=== PATIENT | female | born 1945 | race Caucasian/White ===

== ENCOUNTER → 2018-03-01 | Outpatient (CLI) | payer OTHER ==
[~2018-03-01] MED LIST: ALBU90OI61 INH; AMIT10; AMIT10 PO; AMLO5; CARV6.25 PO; CYCL10; CYCL10 PO; Cyclobenzaprine5 MG PO; Dicyclomine HCl20 MG PO; ESOM20; ESOM20 PO; FURO40 PO; Felodipine ER5 MG PO; HYDACE5325 PO; LEVO750 PO; LIDO5TO TOP; LORA.5 PO; LOSA25 PO; METPRE4DP PO; Norco 5-325 Ta1 EACH PO; Omeprazole20 M1 PO; Prilosec Otc20 MG PO; ROPI2 PO; ROXICODONE5 MG PO; SIMV10; SIMV10 PO; SPIR25 PO; SUCR1 PO; Simvastatin20 MG PO; Valium5 MG PO
[2018-03-01 18:23] LABS: Bun/Creatinine Ratio 18.4 (12.0-20.0); Calcium, Blood 9.3 mg/dL (8.5-10.1); Creatinine, Blood 1.03 mg/dL (0.40-1.00); Potassium, Blood 4.8 mmol/L (3.5-5.5)
== END ==
LOC: LAB 17:21 → LAB SHORT 17:21
PROVIDERS: Nurse Practitioner Adult Health
DX: I42.0 Dilated cardiomyopathy (principal)
CPT/HCPCS: 80048

== ENCOUNTER → 2018-10-10 | Outpatient (CLI) | payer OTHER ==
[~2018-10-10] MED LIST changes: +ENTRESTO 97 MG1 EACH PO
[2018-10-10 19:03] LABS: Anion Gap 3 mmol/L (6-16); Blood Urea Nitrogen 16 mg/dL (8-24); Bun/Creatinine Ratio 16.6 (12.0-20.0); CO2, Blood 28 mmol/L (21-32); Calcium, Blood 9.2 mg/dL (8.5-10.1); Chloride, Blood 110 mmol/L (98-108); Creatinine, Blood 0.97 mg/dL (0.40-1.00); Glomerular Filtration Rate >60 (60-); Glucose, Blood 119 mg/dL (70-99); Phosphorus, Blood 3.9 mg/dL (2.5-4.9); Potassium, Blood 4.2 mmol/L (3.5-5.5); Sodium, Blood 141 mmol/L (136-145)
== END | disposition home or self-care (01) ==
LOC: LAB SHORT 18:03 → LAB 18:03
PROVIDERS: Internal Medicine
DX: I10 Essential (primary) hypertension (principal)
CPT/HCPCS: 80069

== ENCOUNTER 2018-11-15 12:29 | Emergency (ER) | payer OTHER ==
[~2018-11-15] VITALS: Ht 157.5 cm; Wt 72.6 kg
[~2018-11-15 12:29] MED LIST changes: -ENTRESTO 97 MG1 EACH PO
[2018-11-15] MEDS ORDERED: ENTRESTO 97 MG1 EACH PO (15:10)
[2018-11-15 15:11] LABS: Source, Urine Clean Catch
[2018-11-15] MEDS ORDERED: Norco 5-325 Ta1 EACH PO (15:19)
[2018-11-15 15:21] LABS: Bilirubin, Urine Neg (Neg); Blood, Urine 2+ (Neg); Glucose Qualitative, Urine Neg (Neg); Ketones, Urine Neg (Neg); Leukocyte Esterase, Urine 3+ (Neg); Nitrite, Urine Pos (Neg); Protein, Urine Neg (Neg); Specific Gravity, Urine 1.005 (1.003-1.022); Urobilinogen, Urine NORM (Normal); pH, Urine 6.5 (5.0-8.0)
[2018-11-15 15:33] LABS: Appearance, Urine Clear (Clear); Color, Urine Yellow (P-Yellow)
[2018-11-15 15:35] LABS: Bacteria Many /hpf; Squamous Epithelial Cells Few /hpf (Few); White Blood Cells, Urine 25-50 /hpf (0-5)
== END 2018-11-15 15:48 | disposition home or self-care (01) ==
LOC: ER 12:29
PROVIDERS: Physician Assistant
DX: S39.011A Strain of muscle, fascia and tendon of abdomen, initial encounter (principal); I10 Essential (primary) hypertension; Z88.0 Allergy status to penicillin; Z88.1 Allergy status to other antibiotic agents; Z88.8 Allergy status to other drugs, medicaments and biological substances; Z79.51 Long term (current) use of inhaled steroids; Z79.899 Other long term (current) drug therapy; X58.XXXA Exposure to other specified factors, initial encounter
CPT/HCPCS: 81001; 87077; 87086; 87186; 93971; 99284-25; A9270-GY

== ENCOUNTER 2019-01-21 10:16 | Emergency (ER) | payer OTHER ==
[~2019-01-21] VITALS: Ht 157.5 cm; Wt 70.8 kg
[~2019-01-21 10:16] MED LIST changes: +ENTRESTO 97 MG1 EACH PO
[2019-01-21 10:52] LABS: BASOPHILS ABSOLUTE AUTO 0.09 K/mm3 (0.00-0.23); BASOPHILS PERCENT AUTO 0 % (0-2); EOSINOPHILS ABSOLUTE AUTO 0.02 K/mm3 (0.00-0.68); EOSINOPHILS PERCENT AUTO 0 % (0-6); Hematocrit 44.1 % (33.0-51.0); Hemoglobin 14.6 g/dL (11.5-16.0); IMMATURE GRAN ABSOLUTE AUTO 0.25 K/mm3 (0.00-0.10); IMMATURE GRAN PERCENT AUTO 1 % (0-1); LYMPHOCYTES ABSOLUTE AUTO 2.85 K/mm3 (0.84-5.20); LYMPHOCYTES PERCENT AUTO 12 % (21-46); MONOCYTES ABSOLUTE AUTO 2.16 K/mm3 (0.16-1.47); MONOCYTES PERCENT AUTO 9 % (4-13); Mean Corpuscular HGB 31.2 pg (26.0-34.0); Mean Corpuscular HGB Conc 33.1 g/dL (31.5-36.5); Mean Corpuscular Volume 94 fL (80-100); Mean Platelet Volume 9.9 fL (9.1-12.4); NEUTROPHILS ABSOLUTE AUTO 17.97 K/mm3 (1.96-9.15); NEUTROPHILS PERCENT AUTO 77 % (41-73); Platelet Count 294 K/mm3 (150-400); RDW Standard Deviation 48.7 fL (35.1-46.3); Red Blood Cell Count 4.68 M/mm3 (3.80-5.20); White Blood Cell Count 23.34 K/mm3 (4.00-11.30)
[2019-01-21 11:11] LABS: Albumin, Blood 3.4 g/dL (3.4-5.0); Albumin/Globulin Ratio 0.8 (0.8-1.8); Bilirubin, Total 2.3 mg/dL (0.1-1.0); Bun/Creatinine Ratio 24.3 (12.0-20.0); Calcium, Blood 9.6 mg/dL (8.5-10.1); Creatinine, Blood 1.36 mg/dL (0.40-1.00); Globulin, Blood 4.5 g/dL (2.2-4.0); Magnesium, Blood 1.9 mg/dL (1.6-2.4); Potassium, Blood 4.3 mmol/L (3.5-5.5); Total Protein, Blood 7.9 g/dL (6.4-8.2)
[2019-01-21 12:53] LABS: Source, Urine Clean Catch
[2019-01-21 13:01] LABS: Blood, Urine 4+ (Neg); Glucose Qualitative, Urine Neg (Neg); Ketones, Urine 1+ (Neg); Leukocyte Esterase, Urine 3+ (Neg); Nitrite, Urine Neg (Neg); Protein, Urine 3+ (Neg); Urobilinogen, Urine 1+ (Normal)
[2019-01-21 13:16] LABS: Appearance, Urine Cloudy (Clear); Bilirubin, Urine 1+ (Neg); Color, Urine Yellow (P-Yellow)
[2019-01-21 13:18] LABS: Source, Urine Clean Catch
[2019-01-21 14:22] LABS: Bacteria Many /hpf; Squamous Epithelial Cells Many /hpf (Few)
[2019-01-21 14:23] LABS: Amorphous Light (0-Heavy); White Blood Cells, Urine 25-50 /hpf (0-5)
[2019-01-21] MEDS ORDERED: Cipro500 MG PO (17:04)
== END 2019-01-21 17:22 | disposition home or self-care (01) ==
LOC: ER 10:16
PROVIDERS: Physician Assistant
DX: M54.31 Sciatica, right side (principal); N39.0 Urinary tract infection, site not specified; I10 Essential (primary) hypertension; Z88.8 Allergy status to other drugs, medicaments and biological substances; Z88.0 Allergy status to penicillin; Z88.6 Allergy status to analgesic agent; Z79.899 Other long term (current) drug therapy; Z79.51 Long term (current) use of inhaled steroids
CPT/HCPCS: 36415; 71046; 72148; 80053; 81015; 83690; 83735; 85025; 87077; 87086; 87186; 96365; 96366; 96367; 96375; 99284-25; J2405; J3370

== ENCOUNTER 2019-03-02 11:11 | Emergency (ER) | payer OTHER ==
[~2019-03-02] VITALS: Ht 162.6 cm; Wt 63.5 kg
[~2019-03-02 11:11] MED LIST changes: +Cipro500 MG PO
[2019-03-02 12:05] LABS: BASOPHILS ABSOLUTE AUTO 0.07 K/mm3 (0.00-0.23); BASOPHILS PERCENT AUTO 0 % (0-2); EOSINOPHILS ABSOLUTE AUTO 0.17 K/mm3 (0.00-0.68); EOSINOPHILS PERCENT AUTO 1 % (0-6); Hematocrit 32.8 % (33.0-51.0); Hemoglobin 10.6 g/dL (11.5-16.0); IMMATURE GRAN ABSOLUTE AUTO 0.47 K/mm3 (0.00-0.10); IMMATURE GRAN PERCENT AUTO 2 % (0-1); LYMPHOCYTES ABSOLUTE AUTO 1.05 K/mm3 (0.84-5.20); LYMPHOCYTES PERCENT AUTO 4 % (21-46); MONOCYTES ABSOLUTE AUTO 0.99 K/mm3 (0.16-1.47); MONOCYTES PERCENT AUTO 4 % (4-13); Mean Corpuscular HGB 28.6 pg (26.0-34.0); Mean Corpuscular HGB Conc 32.3 g/dL (31.5-36.5); Mean Corpuscular Volume 89 fL (80-100); Mean Platelet Volume 9.4 fL (9.1-12.4); NEUTROPHILS ABSOLUTE AUTO 21.97 K/mm3 (1.96-9.15); NEUTROPHILS PERCENT AUTO 89 % (41-73); Platelet Count 320 K/mm3 (150-400); RDW Standard Deviation 45.5 fL (35.1-46.3); White Blood Cell Count 24.72 K/mm3 (4.00-11.30)
[2019-03-02 12:18] LABS: International Normalized Ratio 1.13
[2019-03-02 12:24] LABS: Albumin, Blood 2.7 g/dL (3.4-5.0); Albumin/Globulin Ratio 0.6 (0.8-1.8); Bilirubin, Total 1.2 mg/dL (0.1-1.0); Bun/Creatinine Ratio 13.2 (12.0-20.0); Calcium, Blood 9.3 mg/dL (8.5-10.1); Creatinine, Blood 0.99 mg/dL (0.40-1.00); Globulin, Blood 4.7 g/dL (2.2-4.0); Potassium, Blood 3.9 mmol/L (3.5-5.5); Total Protein, Blood 7.4 g/dL (6.4-8.2)
[2019-03-02 12:30] LABS: Source, Urine Clean Catch
[2019-03-02 12:42] LABS: Appearance, Urine Clear (Clear); Bilirubin, Urine Neg (Neg); Blood, Urine Neg (Neg); Color, Urine Yellow (P-Yellow); Glucose Qualitative, Urine Neg (Neg); Ketones, Urine Neg (Neg); Leukocyte Esterase, Urine 1+ (Neg); Nitrite, Urine Neg (Neg); Protein, Urine 2+ (Neg); Urobilinogen, Urine 2+ (Normal)
[2019-03-02 13:06] LABS: Bacteria Rare /hpf; Red Blood Cells, Urine 0-2 /hpf (0-2); Squamous Epithelial Cells Mod /hpf (Few)
== END 2019-03-02 13:06 | disposition short-term general hospital (02) ==
LOC: ER 11:11
PROVIDERS: Emergency Medicine
DX: I63.9 Cerebral infarction, unspecified (principal); Z88.0 Allergy status to penicillin; Z88.8 Allergy status to other drugs, medicaments and biological substances; Z88.6 Allergy status to analgesic agent; Z79.899 Other long term (current) drug therapy; I10 Essential (primary) hypertension
CPT/HCPCS: 37195; 70450; 71045; 80053; 81001; 82947; 85025; 85610; 85730; 87086; 93005; 93010; 96374-59; 99285-25; J2310; J2997; P9612; Q3014

== ENCOUNTER 2019-05-03 22:43 | Inpatient (IN) | payer OTHER ==
[~2019-05-03] VITALS: Ht 170.2 cm; Wt 62.3 kg
[2019-05-03 23:16] LABS: Source, Urine Catheter
[2019-05-03 23:19] LABS: BASOPHILS ABSOLUTE AUTO 0.07 K/mm3 (0.00-0.23); BASOPHILS PERCENT AUTO 0 % (0-2); EOSINOPHILS ABSOLUTE AUTO 0.01 K/mm3 (0.00-0.68); EOSINOPHILS PERCENT AUTO 0 % (0-6); IMMATURE GRAN PERCENT AUTO 1 % (0-1); LYMPHOCYTES ABSOLUTE AUTO 1.04 K/mm3 (0.84-5.20); LYMPHOCYTES PERCENT AUTO 6 % (21-46); MONOCYTES ABSOLUTE AUTO 1.11 K/mm3 (0.16-1.47); MONOCYTES PERCENT AUTO 6 % (4-13); Mean Corpuscular HGB 30.1 pg (26.0-34.0); Mean Corpuscular HGB Conc 33.3 g/dL (31.5-36.5); Mean Corpuscular Volume 90 fL (80-100); Mean Platelet Volume 9.3 fL (9.1-12.4); NEUTROPHILS ABSOLUTE AUTO 15.52 K/mm3 (1.96-9.15); NEUTROPHILS PERCENT AUTO 86 % (41-73); Platelet Count 279 K/mm3 (150-400); RDW Coefficient Variation 16.4 % (11.7-14.2); RDW Standard Deviation 54.9 fL (35.1-46.3); Red Blood Cell Count 4.32 M/mm3 (3.80-5.20); White Blood Cell Count 17.95 K/mm3 (4.00-11.30)
[2019-05-03 23:19] LABS: Bilirubin, Urine Neg (Neg); Blood, Urine 1+ (Neg); Glucose Qualitative, Urine Neg (Neg); Ketones, Urine Neg (Neg); Leukocyte Esterase, Urine Neg (Neg); Nitrite, Urine Neg (Neg); Protein, Urine 2+ (Neg); Specific Gravity, Urine 1.015 (1.003-1.022); Urobilinogen, Urine 1+ (Normal)
[2019-05-03 23:22] LABS: Appearance, Urine Clear (Clear); Color, Urine Yellow (P-Yellow)
[2019-05-03 23:26] LABS: White Blood Cells, Urine 0-2 /hpf (0-5)
[2019-05-03 23:27] LABS: Bacteria Few /hpf; Squamous Epithelial Cells Few /hpf (Few)
[2019-05-03 23:32] LABS: Alanine Aminotransfer (ALT/SGP 24 U/L (12-78); Albumin, Blood 3.5 g/dL (3.4-5.0); Albumin/Globulin Ratio 0.8 (0.8-1.8); Alk Phos 126 U/L (50-136); Anion Gap 8 mmol/L (6-16); Aspartate Aminotrans (AST/SGOT 18 U/L (12-37); Bilirubin, Total 1.9 mg/dL (0.1-1.0); Blood Urea Nitrogen 19 mg/dL (8-24); Bun/Creatinine Ratio 24.8 (12.0-20.0); CO2, Blood 25 mmol/L (21-32); Calcium, Blood 9.5 mg/dL (8.5-10.1); Chloride, Blood 103 mmol/L (98-108); Creatinine, Blood 0.77 mg/dL (0.40-1.00); Globulin, Blood 4.4 g/dL (2.2-4.0); Glomerular Filtration Rate >60 (60-); Glucose, Blood 148 mg/dL (70-99); Sodium, Blood 136 mmol/L (136-145); Total Protein, Blood 7.9 g/dL (6.4-8.2)
[2019-05-03] MEDS ORDERED: OMEP20ER PT (23:35)
[2019-05-03] MEDS ORDERED: ATOR20 PT (23:35)
[2019-05-03] MEDS ORDERED: LOSA25 PT (23:37)
[2019-05-03] MEDS ORDERED: CARV25 PT (23:37)
[2019-05-03] MEDS ORDERED: OXYC5 PT (23:39)
[2019-05-03] MEDS ORDERED: Feverall650 MG PR (23:39)
[2019-05-03] MEDS ORDERED: WARF5 PT (23:42)
[2019-05-04 00:18] LABS: PCO2 Arterial 34.3 mmHg (35-45); PO2 Arterial 80.3 mmHg (80-100); pH Blood Arterial 7.46 (7.35-7.45)
[2019-05-04 00:26] LABS: Magnesium, Blood 1.8 mg/dL (1.6-2.4); Troponin I <0.015 ng/mL (0.000-0.040)
[2019-05-04 00:48] LABS: Influenza A Negative (NEGATIVE); Influenza B Negative (NEGATIVE)
[2019-05-04 02:51] LABS: International Normalized Ratio 1.16; Prothrombin Time Results 12.3 Sec (9.7-11.5)
--- NOTE | 2019-05-04 03:50 | NUR ---
DR. PATEL CALLED TO CLARIFY ISOLATION ORDERS PT ARRIVED WITH STAFF WEARING DROPLET/CONTACT PRECAUTIONS. DR. PATEL WANTS TO KEEP PT DROPLET IN CASE RESPIRATORY STATUS DETERIORATES AND PT ENDS UP NEEDING TESTED FOR COVID 19. HE BELIEVES PT HAS PNEUMONIA SECONDARY TO ASPIRATION; HOWEVER, WANTS TO PROTECT STAFF DUE TO ELEVATED TEMPERATURE OF 103. THEREFORE, NO NEED TO TEST FOR COVID 19 AT THIS TIME. WANTS TO SEE IF TREATMENT FOR PNEUMONIA IMPROVES PT'S RESPIRATORY STATUS.
--- NOTE | 2019-05-04 03:54 | NUR ---
PT ARRIVED FROM ED AT 0309, PT PULLED FROM STRETCHER, IS NON VERBAL, IV IS INFILTRATED IN LEFT AC. PULLED AND BANDAGED. THAI AT BEDSIDE, GIVING PT HX AND MEDICATIONS.
[2019-05-04 04:00] LABS: BASOPHILS ABSOLUTE AUTO 0.05 K/mm3 (0.00-0.23); BASOPHILS PERCENT AUTO 0 % (0-2); EOSINOPHILS ABSOLUTE AUTO 0.01 K/mm3 (0.00-0.68); EOSINOPHILS PERCENT AUTO 0 % (0-6); Hematocrit 35.7 % (33.0-51.0); Hemoglobin 11.7 g/dL (11.5-16.0); IMMATURE GRAN ABSOLUTE AUTO 0.13 K/mm3 (0.00-0.10); IMMATURE GRAN PERCENT AUTO 1 % (0-1); LYMPHOCYTES ABSOLUTE AUTO 0.98 K/mm3 (0.84-5.20); LYMPHOCYTES PERCENT AUTO 7 % (21-46); MONOCYTES ABSOLUTE AUTO 1.12 K/mm3 (0.16-1.47); MONOCYTES PERCENT AUTO 7 % (4-13); Mean Corpuscular HGB 29.9 pg (26.0-34.0); Mean Corpuscular HGB Conc 32.8 g/dL (31.5-36.5); Mean Corpuscular Volume 91 fL (80-100); Mean Platelet Volume 9.2 fL (9.1-12.4); NEUTROPHILS ABSOLUTE AUTO 12.78 K/mm3 (1.96-9.15); NEUTROPHILS PERCENT AUTO 85 % (41-73); Platelet Count 227 K/mm3 (150-400); RDW Coefficient Variation 16.6 % (11.7-14.2); Red Blood Cell Count 3.91 M/mm3 (3.80-5.20); White Blood Cell Count 15.07 K/mm3 (4.00-11.30)
[2019-05-04 04:25] LABS: Anion Gap 10 mmol/L (6-16); Blood Urea Nitrogen 17 mg/dL (8-24); Bun/Creatinine Ratio 24.4 (12.0-20.0); CO2, Blood 22 mmol/L (21-32); Chloride, Blood 105 mmol/L (98-108); Glomerular Filtration Rate >60 (60-); Glucose, Blood 132 mg/dL (70-99); Potassium, Blood 3.9 mmol/L (3.5-5.5); Sodium, Blood 137 mmol/L (136-145)
--- NOTE | 2019-05-04 05:50 | NUR ---
PT IS RESTING. PT GIVEN WATER VIA DAMP SWABS, TOLERATED WELL, AND INDICATED WANTED MORE. MORE GIVEN, SATISFIED. WENT HOME FOR SLEEP, STATED WOULD BE BACK.
[2019-05-04 15:04] LABS: Adenovirus Not Detected (NOT DETECT); Bordetella pertussis Not Detected (NOT DETECT); Chlamydophila pneumoniae Not Detected (NOT DETECT); Coronavirus 229E Not Detected (NOT DETECT); Coronavirus HKU1 Not Detected (NOT DETECT); Coronavirus NL63 Not Detected (NOT DETECT); Coronavirus OC43 Not Detected (NOT DETECT); Human Metapneumovirus Not Detected (NOT DETECT); Human Rhinovirus/Enterovirus Not Detected (NOT DETECT); Influenza A/2009-H1 Not Detected (NOT DETECT); Influenza A/H1 Not Detected (NOT DETECT); Influenza A/H3 Not Detected (NOT DETECT); Influenza B Not Detected (NOT DETECT); Mycoplasma pneumoniae Not Detected (NOT DETECT); Parainfluenza Virus 1 Not Detected (NOT DETECT); Parainfluenza Virus 2 Not Detected (NOT DETECT); Parainfluenza Virus 3 Not Detected (NOT DETECT); Parainfluenza Virus 4 Not Detected (NOT DETECT); Respiratory Syncytial Virus Detected (NOT DETECT)
--- NOTE | 2019-05-04 17:59 | NUR ---
TUBE FEEDINGS: PT STARTED ON TUBE FEEDINGS AT THIS TIME. NO RESIDUAL NOTED AT THIS TIME WHEN STARTING. JEVITY 1.2 @ 25ML/HR WATER FLUSH 100ML Q 4HR.
--- NOTE | 2019-05-04 21:45 | NUR ---
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 O2 SATURATIONS MAINTAINED>90% ON RA, MONITOR SHOWS SINUS RHYTHM WITH HR 80'S, BP STABLE, PT IS AFEBRILE. PTS R SIDE EXTREMETY MOVEMENT ABSENT, R ARM EDEMA, HX OF PVD. PT INCONTINENT OF BOWEL AND BLADDER, ATTENDS IN PLACE. CALL LIGHT WITHIN REACH AT L SIDE ARM/HAND.
[2019-05-05 04:45] LABS: BASOPHILS ABSOLUTE AUTO 0.04 K/mm3 (0.00-0.23); BASOPHILS PERCENT AUTO 1 % (0-2); EOSINOPHILS PERCENT AUTO 0 % (0-6); Hematocrit 32.7 % (33.0-51.0); Hemoglobin 10.8 g/dL (11.5-16.0); IMMATURE GRAN ABSOLUTE AUTO 0.09 K/mm3 (0.00-0.10); IMMATURE GRAN PERCENT AUTO 1 % (0-1); LYMPHOCYTES ABSOLUTE AUTO 1.02 K/mm3 (0.84-5.20); LYMPHOCYTES PERCENT AUTO 12 % (21-46); MONOCYTES ABSOLUTE AUTO 0.89 K/mm3 (0.16-1.47); MONOCYTES PERCENT AUTO 10 % (4-13); Mean Corpuscular Volume 91 fL (80-100); Mean Platelet Volume 9.6 fL (9.1-12.4); NEUTROPHILS ABSOLUTE AUTO 6.54 K/mm3 (1.96-9.15); NEUTROPHILS PERCENT AUTO 76 % (41-73); Platelet Count 196 K/mm3 (150-400); RDW Coefficient Variation 16.5 % (11.7-14.2); RDW Standard Deviation 55.6 fL (35.1-46.3); White Blood Cell Count 8.58 K/mm3 (4.00-11.30)
[2019-05-05 05:00] LABS: Anion Gap 7 mmol/L (6-16); Blood Urea Nitrogen 16 mg/dL (8-24); Bun/Creatinine Ratio 20.2 (12.0-20.0); CO2, Blood 26 mmol/L (21-32); Chloride, Blood 104 mmol/L (98-108); Creatinine, Blood 0.79 mg/dL (0.40-1.00); Glomerular Filtration Rate >60 (60-); Glucose, Blood 137 mg/dL (70-99); Magnesium, Blood 1.8 mg/dL (1.6-2.4); Phosphorus, Blood 2.6 mg/dL (2.5-4.9); Potassium, Blood 3.2 mmol/L (3.5-5.5); Sodium, Blood 137 mmol/L (136-145)
--- NOTE | 2019-05-05 06:35 | NUR ---
SHIFT SUMMARY NO ACUTE CHANGES THIS SHIFT, PT SLEPT INTERMITTENTLY T/O SHIFT, AROUSES WITH VERBAL STIMULI AND NURSING CARE. PT REMAINS ON RA, MONITOR SHOWS NSR WITH HR 70'S-80'S, BP STABLE, PT REMAINS AFEBRILE. TF INFUSING PER PEG @ 45ml/hr, LOW RESIDUALS. PT INCONTINENT OF BOWEL AND BLADDER, STOOL SOFT TO MUCOUSY CONSISTENCY.
--- NOTE | 2019-05-05 13:29 | NUR ---
PATIENT RETURNED FROM CT SCAN.
--- NOTE | 2019-05-05 18:22 | NUR ---
SHIFT SUMMARY: ALERT, BUT NAPPED DURING THE DAY. EXP APHASIA, USING COMMUNICATION BOARD AND PEN & PAPER TO MAKE NEEDS KNOWN. SINUS RHYTHM, VSS, AFEBRILE. BREATH SOUNDS ARE COARSE WITH SCATTERED EXP WHEEZES, PROD COUGH WITH CLEAR SPUTUM, MANAGING HER SECRETIONS. SMALL BM TODAY, SEMI-FORMED SO C DIFF SPECIMEN NOT ORDERED OR SENT STOOL NOT APPROPRIATE FOR TESTING. INCONTINENT OF B&B, SKIN INTACT. TF RATE INCREASED TO GOAL OF 60 ML/HR WITH NO RESIDUALS THROUGHOUT THE DAY. DENIED PAIN. IS PCU STATUS.
--- NOTE | 2019-05-05 22:24 | NUR ---
ASSUMPTION OF CARE ASSUMED CARE OF PT @ 1900, PT RESTING IN BED, AROUSES TO VERBAL STIMULI. USING COMMUNICATION BOARD, PAPER/PEN, AND GESTURES TO COMMUNICATE. O2 SATURATIONS MAINTAINED>90% ON RA, MONITOR SHOWS SINUS RHYTHM WITH HR 70'S. PT WITH MODERATE AMOUNT OF SECRETIONS, CLEARING ON OWN WITH TISSUES AT BEDSIDE. R SIDE WEAKNESS R/T HX OF CVA. PEG TUBE IN PLACE INFUSING TF @ GOAL RATE OF 60ml/hr, LOW RESIDUALS, PT DENIES NAUSEA. PT INCONTINENT OF BLADDER AND BOWEL, ATTENDS IN PLACE. HOB REMAINS AT 30 DEGREES OR GREATER FOR ASPIRATIONS PRECAUTIONS. CALL LIGHT WITHIN REACH.
[2019-05-06 05:26] LABS: BASOPHILS ABSOLUTE AUTO 0.02 K/mm3 (0.00-0.23); BASOPHILS PERCENT AUTO 0 % (0-2); EOSINOPHILS ABSOLUTE AUTO 0.03 K/mm3 (0.00-0.68); EOSINOPHILS PERCENT AUTO 0 % (0-6); Hematocrit 34.3 % (33.0-51.0); Hemoglobin 11.4 g/dL (11.5-16.0); IMMATURE GRAN ABSOLUTE AUTO 0.18 K/mm3 (0.00-0.10); IMMATURE GRAN PERCENT AUTO 2 % (0-1); LYMPHOCYTES ABSOLUTE AUTO 1.57 K/mm3 (0.84-5.20); LYMPHOCYTES PERCENT AUTO 20 % (21-46); MONOCYTES ABSOLUTE AUTO 1.47 K/mm3 (0.16-1.47); MONOCYTES PERCENT AUTO 19 % (4-13); Mean Corpuscular HGB 29.8 pg (26.0-34.0); Mean Corpuscular HGB Conc 33.2 g/dL (31.5-36.5); Mean Corpuscular Volume 90 fL (80-100); Mean Platelet Volume 9.4 fL (9.1-12.4); NEUTROPHILS ABSOLUTE AUTO 4.41 K/mm3 (1.96-9.15); NEUTROPHILS PERCENT AUTO 58 % (41-73); Platelet Count 183 K/mm3 (150-400); RDW Coefficient Variation 15.9 % (11.7-14.2); RDW Standard Deviation 53.1 fL (35.1-46.3); Red Blood Cell Count 3.82 M/mm3 (3.80-5.20); White Blood Cell Count 7.68 K/mm3 (4.00-11.30)
[2019-05-06 05:43] LABS: Alanine Aminotransfer (ALT/SGP 18 U/L (12-78); Albumin, Blood 2.8 g/dL (3.4-5.0); Albumin/Globulin Ratio 0.7 (0.8-1.8); Alk Phos 92 U/L (50-136); Anion Gap 6 mmol/L (6-16); Aspartate Aminotrans (AST/SGOT 16 U/L (12-37); Bilirubin, Total 1.2 mg/dL (0.1-1.0); Blood Urea Nitrogen 18 mg/dL (8-24); Bun/Creatinine Ratio 21.5 (12.0-20.0); CO2, Blood 29 mmol/L (21-32); Calcium, Blood 9.2 mg/dL (8.5-10.1); Chloride, Blood 104 mmol/L (98-108); Creatinine, Blood 0.84 mg/dL (0.40-1.00); Globulin, Blood 3.8 g/dL (2.2-4.0); Glomerular Filtration Rate >60 (60-); Glucose, Blood 136 mg/dL (70-99); Phosphorus, Blood 2.1 mg/dL (2.5-4.9); Sodium, Blood 139 mmol/L (136-145); Total Protein, Blood 6.6 g/dL (6.4-8.2)
--- NOTE | 2019-05-06 06:12 | NUR ---
SHIFT SUMMARY NO ACUTE CHAGNES THIS SHIFT. PT RESTED FOR PART OF SHIFT, AROUSES WITH NURSING CARE. PT MAINTAINS O2 SATURATIONS ON RA, MONITOR SHOWS SINUS RHYTHM WITH HR 70'S, BP STABLE. PT WITH SEVERAL SOFT TO LOOSE STOOL THIS SHIFT. TF INFUSING PER PEG TUBE @ GOAL RATE OF 60ml/hr. CALL LIGHT WITHIN REACH.
--- NOTE | 2019-05-06 18:45 | NUR ---
Assumed Care Patient transferred from ICU to [facility], arrived via bed. Transferred over with total assist and slide sheet. Patient settled to room. Call light near by.
[2019-05-07 06:09] LABS: BASOPHILS ABSOLUTE AUTO 0.07 K/mm3 (0.00-0.23); BASOPHILS PERCENT AUTO 1 % (0-2); EOSINOPHILS ABSOLUTE AUTO 0.07 K/mm3 (0.00-0.68); EOSINOPHILS PERCENT AUTO 1 % (0-6); Hematocrit 37.1 % (33.0-51.0); Hemoglobin 12.2 g/dL (11.5-16.0); IMMATURE GRAN ABSOLUTE AUTO 0.34 K/mm3 (0.00-0.10); IMMATURE GRAN PERCENT AUTO 4 % (0-1); LYMPHOCYTES ABSOLUTE AUTO 2.25 K/mm3 (0.84-5.20); LYMPHOCYTES PERCENT AUTO 24 % (21-46); MONOCYTES ABSOLUTE AUTO 1.75 K/mm3 (0.16-1.47); MONOCYTES PERCENT AUTO 18 % (4-13); Mean Corpuscular HGB 29.3 pg (26.0-34.0); Mean Corpuscular HGB Conc 32.9 g/dL (31.5-36.5); Mean Corpuscular Volume 89 fL (80-100); Mean Platelet Volume 9.8 fL (9.1-12.4); NEUTROPHILS ABSOLUTE AUTO 5.02 K/mm3 (1.96-9.15); NEUTROPHILS PERCENT AUTO 53 % (41-73); Platelet Count 221 K/mm3 (150-400); RDW Coefficient Variation 15.9 % (11.7-14.2); RDW Standard Deviation 52.4 fL (35.1-46.3); Red Blood Cell Count 4.17 M/mm3 (3.80-5.20)
[2019-05-07 06:21] LABS: Anion Gap 8 mmol/L (6-16); Blood Urea Nitrogen 19 mg/dL (8-24); Bun/Creatinine Ratio 25.4 (12.0-20.0); CO2, Blood 27 mmol/L (21-32); Calcium, Blood 8.9 mg/dL (8.5-10.1); Chloride, Blood 104 mmol/L (98-108); Creatinine, Blood 0.75 mg/dL (0.40-1.00); Glomerular Filtration Rate >60 (60-); Glucose, Blood 127 mg/dL (70-99); Potassium, Blood 3.4 mmol/L (3.5-5.5); Sodium, Blood 139 mmol/L (136-145)
--- NOTE | 2019-05-07 06:37 | NUR ---
SHIFT SUMMARY: VSS. AFEB. ALERT AND ATTEMPTING TO COMMUNICATE USING GESTURES AND GARBLED SPEECH. PLEASANT AND INTERACTIVE TO HER ABILITY. R HEMIPARESIS. VERY SLIGHT MOVEMENT OF R HAND AND R FOOT. LIMITED MOVEMENT OF L FOOT. MOVEMENT INTACT IN L ARM/HAND. CONTINUOUS LIQUID STOOLS. INCONTINENT OF B/B. CONT T/F W/INTERMITTENT WATER FLUSHES PER ORDERS. RESIDUAL 0 cc's. PERISTOMAL TISSUE W/ MINIMAL IRRITATION UNDER BUMPER. PT DAMIEN T/F WELL. HOB REMAINS ELEVATED 30 DEGREES. RHONCHI AUSCULTATED THROUGHOUT LUNGS. INTERMITTENT PRODUCTIVE SOUNDING COUGH. NO SPUTUM OBSERVED. MAINTAINING 02 SATS WNL ON RA. NO ACUTE CHANGES OVERNIGHT. WILL CONT TO MONITOR.
--- NOTE | 2019-05-07 12:07 | NUR ---
SPOKE WITH DR. LONGORIA REGARDING LOW POTASSIUM OF PT. MADE VERBAL ORDER FOR PT FOR POTASSIUM, ORDERED ENTERED WITH READBACK, CONFIRMED WITH PHARMACY.
--- NOTE | 2019-05-07 17:50 | NUR ---
SHIFT SUMMARY PT A/O AND INCOMPRENSIBLE SPEECH PATTERNS FOR THE PATIENT. PT TURNED Q2 HOURS. TUBE FEEDING RUNNING, NO RESIDUAL NOTED THROUGH SHIFT. PT HAS HAD MULT LOOSE BROWN STOOLS DURING SHIFT. ANDREE CARE COMPLETED Q 2 HOURS. ALL MEDICATIONS ADMINISTERED THROUGH IV PT NPO DURING THIS TIME. PT ON BEDREST. VSS AND NO ACUTE CHANGES NOTED. LN TO CONTINUE TO MONITOR.
--- NOTE | 2019-05-08 07:33 | NUR ---
73 year old PT with RSV and pneumonia continues in Droplet contact isolation. PT is NPO for aspiration. She has severe asphasia garbled speech occasionally, does not use call moseley or attempt to communicate. 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 She is incontient of bowel & bladder. PT tolerating Jevity 1.2 jyoti tube feed continously without problems. Kerline and anal area very excoriated skin care with calmaseptic and barrier cream provided. On room air with harse occasional cough. MAx assist for toileting bed mobility. Awake most of night with TV on, watching murder series.
[2019-05-08 08:51] LABS: Hematocrit 37.8 % (33.0-51.0); Hemoglobin 12.4 g/dL (11.5-16.0); Mean Corpuscular HGB 29.7 pg (26.0-34.0); Mean Corpuscular HGB Conc 32.8 g/dL (31.5-36.5); Mean Corpuscular Volume 91 fL (80-100); Mean Platelet Volume 9.7 fL (9.1-12.4); Platelet Count 228 K/mm3 (150-400); RDW Coefficient Variation 16.2 % (11.7-14.2); RDW Standard Deviation 53.8 fL (35.1-46.3); Red Blood Cell Count 4.17 M/mm3 (3.80-5.20); White Blood Cell Count 11.67 K/mm3 (4.00-11.30)
[2019-05-08 09:13] LABS: Anion Gap 6 mmol/L (6-16); Blood Urea Nitrogen 20 mg/dL (8-24); Bun/Creatinine Ratio 28.5 (12.0-20.0); CO2, Blood 27 mmol/L (21-32); Calcium, Blood 9.1 mg/dL (8.5-10.1); Chloride, Blood 104 mmol/L (98-108); Glomerular Filtration Rate >60 (60-); Glucose, Blood 173 mg/dL (70-99); Potassium, Blood 3.7 mmol/L (3.5-5.5); Sodium, Blood 137 mmol/L (136-145)
[2019-05-08 09:42] LABS: BAND PERCENT MAN 2 % (0-8); BASOPHILS ABSOLUTE MAN 0.11 K/mm3 (0.00-0.23); BASOPHILS PERCENT MAN 1 % (0-2); EOSINOPHILS ABSOLUTE MAN 0.11 K/mm3 (0.00-0.68); EOSINOPHILS PERCENT MAN 1 % (0-6); LYMPHOCYTES ABSOLUTE MAN 1.98 K/mm3 (0.84-5.20); LYMPHOCYTES PERCENT MAN 17 % (21-46); METAMYELOCYTE ABSOLUTE MAN 0.35 K/mm3 (0.00-0.00); METAMYELOCYTE PERCENT MAN 3 % (0-0); MONOCYTES ABSOLUTE MAN 1.28 K/mm3 (0.16-1.47); MONOCYTES PERCENT MAN 11 % (4-13); NEUTROPHILS ABSOLUTE MAN 7.81 K/mm3 (1.96-9.15); SEG NEUTROPHILS PERCENT MAN 65 % (41-73); TOTAL CELLS COUNTED 100
--- NOTE | 2019-05-08 18:26 | NUR ---
SHIFT SUMMARY PT AWAKE DURING SHIFT REPORT, RESTING QUIETLY WITH TUBE FEEDING INFUSING PER ORDERS. PER REPORT, PT HAD A STROKE IN FEB; R SIDE FLACCID, SPEECH GARBLED. PT ADMITTED FOR ASPIRATION PNM AND IN DROPLET ISO FOR RSV. PER REPORT, PT HAD BEEN EATING ORALLY WELL PEG TUBE, BUT ASPIRATING. PT NOW NPO. SPEECH EVAL DONE AGAIN TODAY. PT UNABLE TO TOLERATE. DIETARY ALSO IN TO SEE PT; NEW TUBE FEEDING ORDERS PLACED. PT NOW ON BOLUS FEEDS WITH JEVITY 1.5; TOLERATING WELL TO PRESENT; 10cc RESIDUAL WHEN CHEK'D. PT INCONTINENT OF BOWEL AND BLADDER. RECTAL AREA EXCORIATED FROM CONSTANT STOOL. PT FREQUENTLY TRIES TO COMMUNICATE, BUT VERY LIMITED UNDERSTANDING. ABLE TO USE PICTURE WORDS TO POINT TO ON OCCASSION. PT ABLE TO USE L HAND AND ARM. NO S/SX OF DISTRESS NOTED. PT TO RETURN TO TOMORROW, PER DIRECTOR EHS. CALL LT IN REACH.
[2019-05-09 05:23] LABS: Mean Corpuscular HGB 29.5 pg (26.0-34.0); Mean Corpuscular HGB Conc 32.5 g/dL (31.5-36.5); Mean Corpuscular Volume 91 fL (80-100); Mean Platelet Volume 9.6 fL (9.1-12.4); Platelet Count 257 K/mm3 (150-400); RDW Coefficient Variation 16.2 % (11.7-14.2); RDW Standard Deviation 54.3 fL (35.1-46.3); Red Blood Cell Count 4.41 M/mm3 (3.80-5.20); White Blood Cell Count 14.54 K/mm3 (4.00-11.30)
[2019-05-09 05:44] LABS: Anion Gap 8 mmol/L (6-16); BASOPHILS ABSOLUTE MAN 0.14 K/mm3 (0.00-0.23); BASOPHILS PERCENT MAN 1 % (0-2); Blood Urea Nitrogen 33 mg/dL (8-24); Bun/Creatinine Ratio 35.2 (12.0-20.0); CO2, Blood 26 mmol/L (21-32); Calcium, Blood 9.2 mg/dL (8.5-10.1); Chloride, Blood 106 mmol/L (98-108); Creatinine, Blood 0.94 mg/dL (0.40-1.00); EOSINOPHILS ABSOLUTE MAN 0.29 K/mm3 (0.00-0.68); EOSINOPHILS PERCENT MAN 2 % (0-6); Glomerular Filtration Rate >60 (60-); Glucose, Blood 169 mg/dL (70-99); LYMPHOCYTES ABSOLUTE MAN 2.18 K/mm3 (0.84-5.20); LYMPHOCYTES PERCENT MAN 15 % (21-46); METAMYELOCYTE ABSOLUTE MAN 0.43 K/mm3 (0.00-0.00); METAMYELOCYTE PERCENT MAN 3 % (0-0); MONOCYTES ABSOLUTE MAN 1.89 K/mm3 (0.16-1.47); MONOCYTES PERCENT MAN 13 % (4-13); MYELOCYTE ABSOLUTE MAN 0.29 K/mm3 (0.00-0.00); MYELOCYTE PERCENT MAN 2 % (0-0); Potassium, Blood 3.9 mmol/L (3.5-5.5); SEG NEUTROPHILS PERCENT MAN 64 % (41-73); Sodium, Blood 140 mmol/L (136-145); TOTAL CELLS COUNTED 100
--- NOTE | 2019-05-09 17:21 | NUR ---
pt polst not legible, will attemtp to get copy form and review.
--- NOTE | 2019-05-09 18:56 | NUR ---
Initial spiritual care note: Mrs. Belcher is very difficult to understand, but can nod 'yes' or 'no' to questions. She allowed me to pray for her, but did not want to engage further. No family present. I will remain available.
--- NOTE | 2019-05-09 19:58 | NUR ---
SUMM- PT ALERT TO SELF, FAMILY AND PLACE. NODS YES AND NO. HAS EXPRESSIVE APHASIA AND GETS FRUSTRATED TRYING TO COMMUNICATE. GESTURES AND ENC COMM BOARD. PT HAS A STRONG COUGH AND CLEARS SECRETIONS. ORAL CARE AND DONE AND PT USES LEMON GLYCERINE SWABS. SPEECH BY TODAY AND PLAN FOR MODIFIED BARIUM SWALLOW 05/09 O900, SO TO HOLD 0800 TUBE FEED. PT IS INCONT BLADDER WITH ATTENDS. SKIN EXCIATED IN FOLDS AND ESPECIALLY PERIRECTAL. APPLIED CALAZYME WITH EACH ATTENDS CHANGE. PT HAD LOOSE TO SEMI FORMED FELDER BM. TOLERATING TUBE FEEDS, NO NAUSEA, NO RESIDUALS. GIVING WATER BOLUS 250ML X2 PLUS 100ML WITH TUBE FEEDS. BLOOD SUGAR HIGH AT LUNCH, HAD CHECKED AFTER A FEED. NOTIFIED DR LONGORIA. MED SS INSULIN ORDERED. NOT NEEDED ONCE TIME OF SUGAR CHECKS MATCHED WITH FEEDS AC AND HS. PT DENIES PAIN. CALLED, WILL BE IN TO SEE PT IN THE AM.
[2019-05-10 06:07] LABS: Hematocrit 38.2 % (33.0-51.0); Hemoglobin 12.2 g/dL (11.5-16.0); Mean Corpuscular HGB 29.5 pg (26.0-34.0); Mean Corpuscular HGB Conc 31.9 g/dL (31.5-36.5); Mean Corpuscular Volume 93 fL (80-100); Mean Platelet Volume 9.9 fL (9.1-12.4); Platelet Count 267 K/mm3 (150-400); RDW Coefficient Variation 16.6 % (11.7-14.2); RDW Standard Deviation 56.1 fL (35.1-46.3); Red Blood Cell Count 4.13 M/mm3 (3.80-5.20); White Blood Cell Count 17.38 K/mm3 (4.00-11.30)
[2019-05-10 06:25] LABS: Anion Gap 9 mmol/L (6-16); Blood Urea Nitrogen 33 mg/dL (8-24); Bun/Creatinine Ratio 35.3 (12.0-20.0); CO2, Blood 27 mmol/L (21-32); Calcium, Blood 9.2 mg/dL (8.5-10.1); Chloride, Blood 104 mmol/L (98-108); Creatinine, Blood 0.94 mg/dL (0.40-1.00); Glomerular Filtration Rate >60 (60-); Glucose, Blood 104 mg/dL (70-99); Potassium, Blood 3.9 mmol/L (3.5-5.5); Sodium, Blood 140 mmol/L (136-145)
[2019-05-10 06:38] LABS: BAND PERCENT MAN 4 % (0-8); BASOPHILS PERCENT MAN 0 % (0-2); EOSINOPHILS ABSOLUTE MAN 0.34 K/mm3 (0.00-0.68); EOSINOPHILS PERCENT MAN 2 % (0-6); International Normalized Ratio 1.07; LYMPHOCYTES ABSOLUTE MAN 3.47 K/mm3 (0.84-5.20); LYMPHOCYTES PERCENT MAN 20 % (21-46); METAMYELOCYTE ABSOLUTE MAN 0.52 K/mm3 (0.00-0.00); METAMYELOCYTE PERCENT MAN 3 % (0-0); MONOCYTES ABSOLUTE MAN 1.73 K/mm3 (0.16-1.47); MONOCYTES PERCENT MAN 10 % (4-13); MYELOCYTE ABSOLUTE MAN 0.86 K/mm3 (0.00-0.00); MYELOCYTE PERCENT MAN 5 % (0-0); NEUTROPHILS ABSOLUTE MAN 10.42 K/mm3 (1.96-9.15); Prothrombin Time Results 11.4 Sec (9.7-11.5); SEG NEUTROPHILS PERCENT MAN 56 % (41-73); TOTAL CELLS COUNTED 100
[2019-05-10] MEDS ORDERED: DOCU LIQUI50 MG/5 ML PT (12:20)
[2019-05-10] MEDS ORDERED: BISA10S PR (12:20)
[2019-05-10] MEDS ORDERED: Doxycycline Mo100 M1 PT (12:21)
[2019-05-10] MEDS ORDERED: FURO20 PT (12:21)
[2019-05-10] MEDS ORDERED: HYDR10 PT (12:22)
[2019-05-10] MEDS ORDERED: Vsl#3 Capsule1 EACH PT (12:23)
[2019-05-10] MEDS ORDERED: HUMALOG KW200 UNIT/1 SC (12:23)
[2019-05-10] MEDS ORDERED: Milk Of Ma400 MG/5 M PT (12:23)
[2019-05-10] MEDS ORDERED: ONDA4ODT MM (12:24)
[2019-05-10] MEDS ORDERED: POTA20LUD PT (12:24)
--- NOTE | 2019-05-10 13:45 | NUR ---
PATIENT DC'D VIA TRANSPORT TO [facility]. REPORT CALLED TO [facility]. DC PACKET GIVEN TO CAR WASHER. POWERGLIDE REMOVED PRIOR TO DC. HARD SCRIPT FOR OXYCODONE PLACED IN PACKET AND GIVEN TO CAR WASHER.
== END 2019-05-10 13:10 | DRG 871 ==
LOC: ER 22:43 → ICUE 05-04 03:02 → ICUW 05-04 03:02 → ICUE 05-04 03:08 → MEDS 05-06 18:39
PROVIDERS: Emergency Medicine; Family Medicine; ADMIT Hospitalist
DX: A41.9 Sepsis, unspecified organism (principal); J69.0 Pneumonitis due to inhalation of food and vomit; I50.22 Chronic systolic (congestive) heart failure; I69.351 Hemiplegia and hemiparesis following cerebral infarction affecting right dominant side; B97.4 Respiratory syncytial virus as the cause of diseases classified elsewhere; I11.0 Hypertensive heart disease with heart failure; E78.5 Hyperlipidemia, unspecified; E87.6 Hypokalemia; I51.3 Intracardiac thrombosis, not elsewhere classified; K21.9 Gastro-esophageal reflux disease without esophagitis; I69.391 Dysphagia following cerebral infarction; R13.10 Dysphagia, unspecified; I69.920 Aphasia following unspecified cerebrovascular disease; Z88.0 Allergy status to penicillin
CPT/HCPCS: 0099U; 36415; 36600; 51701; 71045; 71250; 74150; 74230; 80048; 80053; 81001; 82803; 82947; 83605; 83690; 83735; 83880; 84100; 84145; 84484; 85025; 85610; 87040; 87493; 87804; 92526; 92610; 92611; 93005; 93010; 94761; 96365-59; 96366-59; 96367-59; 96375-59; 97162; 97167; 97530; 99285-25; A9270-GY; C1751; J1650; J1940; J1956; J2405; J3370; J3480; J7030; J7050; J7060

== ENCOUNTER → 2019-05-18 | Outpatient (CLI) | payer OTHER ==
[~2019-05-18] MED LIST changes: +ATOR20 PT; +BISA10S PR; +CARV25 PT; +DOCU LIQUI50 MG/5 ML PT; +Doxycycline Mo100 M1 PT; +FURO20 PT; +Feverall650 MG PR; +HUMALOG KW200 UNIT/1 SC; +HYDR10 PT; +LOSA25 PT; +Milk Of Ma400 MG/5 M PT; +OMEP20ER PT; +ONDA4ODT MM; +OXYC5 PT; +POTA20LUD PT; +Vsl#3 Capsule1 EACH PT; +WARF5 PT
== END | disposition home or self-care (01) ==
LOC: LAB RH 08:15 → EDSTATUS 11:33
DX: E44.0 Moderate protein-calorie malnutrition (principal)
CPT/HCPCS: 83036

== ENCOUNTER → 2019-06-04 | Outpatient (CLI) | payer OTHER | END | disposition home or self-care (01) | LOC: LAB RH 10:50 → EDSTATUS 12:44 | DX: E11.9 Type 2 diabetes mellitus without complications (principal) | CPT/HCPCS: 83036 ==

== ENCOUNTER → 2019-06-21 | Outpatient (CLI) | payer OTHER ==
[2019-06-21 09:58] LABS: Very Low Density Lipoprot Chol 74 mg/dL (6-32)
[2019-06-21 09:59] LABS: Alanine Aminotransfer (ALT/SGP 24 U/L (12-78); Albumin, Blood 3.2 g/dL (3.4-5.0); Albumin/Globulin Ratio 0.8 (0.8-1.8); Alk Phos 99 U/L (50-136); Anion Gap 6 mmol/L (6-16); Aspartate Aminotrans (AST/SGOT 17 U/L (12-37); Bilirubin, Total 0.9 mg/dL (0.1-1.0); Blood Urea Nitrogen 23 mg/dL (8-24); CHOL/HDL RATIO 4.4; CO2, Blood 26 mmol/L (21-32); Chloride, Blood 108 mmol/L (98-108); Cholesterol 159 mg/dL (50-200); Globulin, Blood 3.8 g/dL (2.2-4.0); Glomerular Filtration Rate >60 (60-); Glucose, Blood 119 mg/dL (70-99); HDL Cholesterol 36 mg/dL (>39); LDL/HDL RATIO 1.4; Low Density Lipoprotein Chol 49 mg/dL (0-110); Potassium, Blood 4.3 mmol/L (3.5-5.5); Sodium, Blood 140 mmol/L (136-145); Triglycerides 372 mg/dL (30-160)
== END | disposition home or self-care (01) ==
LOC: LAB RH 08:03 → EDSTATUS 09:42
PROVIDERS: Family Medicine
DX: E78.2 Mixed hyperlipidemia (principal); I10 Essential (primary) hypertension
CPT/HCPCS: 80053; 80061

== ENCOUNTER 2020-02-16 17:45 | Emergency (ER) | payer OTHER ==
[~2020-02-16] VITALS: Ht 162.6 cm; Wt 90.7 kg
[~2020-02-16 17:45] MED LIST changes: +ATOR20 PO; -ATOR20 PT; +CARV25 PO; -CARV25 PT; +FURO20 PO; -FURO20 PT; +HYDR10 PO; -HYDR10 PT; -LOSA25 PT; -POTA20LUD PT; +POTCHL20ER PO; +PROBIOTIC250 MG PO; +WARF4 PO; -WARF5 PT
[2020-02-16 18:11] LABS: BASOPHILS PERCENT AUTO 1 % (0-2); EOSINOPHILS ABSOLUTE AUTO 0.47 K/mm3 (0.00-0.68); EOSINOPHILS PERCENT AUTO 3 % (0-6); Hemoglobin 9.3 g/dL (11.5-16.0); IMMATURE GRAN ABSOLUTE AUTO 0.53 K/mm3 (0.00-0.10); IMMATURE GRAN PERCENT AUTO 3 % (0-1); LYMPHOCYTES ABSOLUTE AUTO 3.34 K/mm3 (0.84-5.20); LYMPHOCYTES PERCENT AUTO 19 % (21-46); MONOCYTES ABSOLUTE AUTO 1.62 K/mm3 (0.16-1.47); MONOCYTES PERCENT AUTO 9 % (4-13); Mean Corpuscular HGB 29.3 pg (26.0-34.0); Mean Corpuscular HGB Conc 32.1 g/dL (31.5-36.5); Mean Corpuscular Volume 92 fL (80-100); Mean Platelet Volume 8.9 fL (9.1-12.4); NEUTROPHILS ABSOLUTE AUTO 11.33 K/mm3 (1.96-9.15); NEUTROPHILS PERCENT AUTO 65 % (41-73); Platelet Count 461 K/mm3 (150-400); RDW Coefficient Variation 15.4 % (11.7-14.2); RDW Standard Deviation 50.7 fL (35.1-46.3); Red Blood Cell Count 3.17 M/mm3 (3.80-5.20); White Blood Cell Count 17.39 K/mm3 (4.00-11.30)
[2020-02-16 18:24] LABS: International Normalized Ratio 1.36; Prothrombin Time Results 14.3 Sec (9.7-11.5)
[2020-02-16 18:31] LABS: Alanine Aminotransfer (ALT/SGP 13 U/L (12-78); Albumin, Blood 2.9 g/dL (3.4-5.0); Albumin/Globulin Ratio 0.7 (0.8-1.8); Alk Phos 106 U/L (50-136); Anion Gap 9 mmol/L (6-16); Aspartate Aminotrans (AST/SGOT 17 U/L (12-37); Bilirubin, Total 2.1 mg/dL (0.1-1.0); Blood Urea Nitrogen 12 mg/dL (8-24); CO2, Blood 24 mmol/L (21-32); Calcium, Blood 9.2 mg/dL (8.5-10.1); Chloride, Blood 106 mmol/L (98-108); Creatinine, Blood 0.86 mg/dL (0.40-1.00); Globulin, Blood 4.2 g/dL (2.2-4.0); Glomerular Filtration Rate >60 (60-); Glucose, Blood 127 mg/dL (70-99); Potassium, Blood 3.7 mmol/L (3.5-5.5); Sodium, Blood 139 mmol/L (136-145); Total Protein, Blood 7.1 g/dL (6.4-8.2)
[2020-02-16] MEDS ORDERED: Coumadin2 MG PO (19:23)
[2020-02-16] MEDS ORDERED: LEVE500 PO (20:31)
== END 2020-02-16 21:35 | disposition home or self-care (01) ==
LOC: ER 17:45
PROVIDERS: Emergency Medicine
DX: R06.9 Unspecified abnormalities of breathing (principal); I11.0 Hypertensive heart disease with heart failure; I50.22 Chronic systolic (congestive) heart failure; E78.5 Hyperlipidemia, unspecified; K21.9 Gastro-esophageal reflux disease without esophagitis; Z88.0 Allergy status to penicillin; Z88.1 Allergy status to other antibiotic agents; Z88.6 Allergy status to analgesic agent; Z79.899 Other long term (current) drug therapy; Z79.01 Long term (current) use of anticoagulants; Z86.73 Personal history of transient ischemic attack (TIA), and cerebral infarction without residual deficits; Z87.891 Personal history of nicotine dependence
CPT/HCPCS: 70450; 71045; 80053; 85025; 85610; 93005; 93010; 96365; 96375; 99285-25; J1953; J2060

== ENCOUNTER 2020-04-26 19:16 | Emergency (ER) | payer OTHER ==
[~2020-04-26] VITALS: Ht 157.5 cm; Wt 72.6 kg
[~2020-04-26 19:16] MED LIST changes: +Coumadin2 MG PO; +LEVE500 PO
[2020-04-26] MEDS ORDERED: CLIN300 PO (20:28)
== END 2020-04-26 20:36 | disposition home or self-care (01) ==
LOC: ER 19:16
DX: K04.7 Periapical abscess without sinus (principal); I10 Essential (primary) hypertension; K21.9 Gastro-esophageal reflux disease without esophagitis; E78.5 Hyperlipidemia, unspecified; Z86.73 Personal history of transient ischemic attack (TIA), and cerebral infarction without residual deficits; Z87.891 Personal history of nicotine dependence; Z79.01 Long term (current) use of anticoagulants; Z79.899 Other long term (current) drug therapy; Z88.0 Allergy status to penicillin; Z88.6 Allergy status to analgesic agent
CPT/HCPCS: 99282; A9270

== ENCOUNTER 2023-04-12 20:34 | Emergency (ER) | payer OTHER ==
[~2023-04-12] VITALS: Ht 165.1 cm; Wt 68.0 kg
[~2023-04-12 20:34] MED LIST changes: +CLIN300 PO
[2023-04-12 20:52] LABS: BASOPHILS ABSOLUTE AUTO 0.11 K/mm3 (0.00-0.23); BASOPHILS PERCENT AUTO 1 % (0-2); EOSINOPHILS ABSOLUTE AUTO 0.34 K/mm3 (0.00-0.68); EOSINOPHILS PERCENT AUTO 3 % (0-6); Hematocrit 43.9 % (33.0-51.0); Hemoglobin 14.8 g/dL (11.5-16.0); IMMATURE GRAN ABSOLUTE AUTO 0.12 K/mm3 (0.00-0.10); IMMATURE GRAN PERCENT AUTO 1 % (0-1); LYMPHOCYTES ABSOLUTE AUTO 3.37 K/mm3 (0.84-5.20); LYMPHOCYTES PERCENT AUTO 26 % (21-46); MONOCYTES PERCENT AUTO 9 % (4-13); Mean Corpuscular HGB Conc 33.7 g/dL (31.5-36.5); Mean Corpuscular Volume 89 fL (80-100); Mean Platelet Volume 9.4 fL (9.1-12.4); NEUTROPHILS ABSOLUTE AUTO 7.94 K/mm3 (1.96-9.15); NEUTROPHILS PERCENT AUTO 61 % (41-73); Platelet Count 253 K/mm3 (150-400); RDW Coefficient Variation 14.4 % (11.7-14.2); RDW Standard Deviation 46.3 fL (35.1-46.3); Red Blood Cell Count 4.94 M/mm3 (3.80-5.20); White Blood Cell Count 12.98 K/mm3 (4.00-11.30)
[2023-04-12 21:13] LABS: Albumin, Blood 3.4 g/dL (3.4-5.0); Albumin/Globulin Ratio 0.9 (0.8-1.8); Bilirubin, Total 1.5 mg/dL (0.1-1.0); Bun/Creatinine Ratio 16.4 (12.0-20.0); Calcium, Blood 9.5 mg/dL (8.5-10.1); Creatinine, Blood 0.85 mg/dL (0.40-1.00); Globulin, Blood 3.9 g/dL (2.2-4.0); Potassium, Blood 4.2 mmol/L (3.5-5.5); Total Protein, Blood 7.3 g/dL (6.4-8.2)
[2023-04-13 00:30] VITALS: BP 156/76
== END 2023-04-13 01:47 | disposition home or self-care (01) ==
LOC: ER 20:34
PROVIDERS: Student in an Organized Health Care Education/Training Program
DX: R07.89 Other chest pain (principal); I69.322 Dysarthria following cerebral infarction; I69.351 Hemiplegia and hemiparesis following cerebral infarction affecting right dominant side; I11.0 Hypertensive heart disease with heart failure; I50.22 Chronic systolic (congestive) heart failure; E78.5 Hyperlipidemia, unspecified; K21.9 Gastro-esophageal reflux disease without esophagitis; G25.81 Restless legs syndrome; K51.90 Ulcerative colitis, unspecified, without complications; Z88.0 Allergy status to penicillin; Z88.1 Allergy status to other antibiotic agents; Z88.8 Allergy status to other drugs, medicaments and biological substances; Z88.6 Allergy status to analgesic agent; Z79.01 Long term (current) use of anticoagulants; Z79.899 Other long term (current) drug therapy; Z87.891 Personal history of nicotine dependence
CPT/HCPCS: 71046; 80053; 83880; 84484; 85025; 93005; 93010; 99285-25